=== PATIENT | female | born 1990 | race Caucasian/White ===

== ENCOUNTER 2019-11-19 12:23 | Emergency (ER) | payer OTHER ==
[~2019-11-19] VITALS: Ht 165.1 cm; Wt 59.0 kg
[2019-11-19] MEDS ORDERED: TENORMIN25 MG (12:31)
[2019-11-19] MEDS ORDERED: EFEXOR (12:31)
[2019-11-19] MEDS ORDERED: DUI500 PO (12:57)
[2019-11-19] MEDS ORDERED: MUPIROCIN1 G1 TOP (12:57)
== END 2019-11-19 13:30 | disposition home or self-care (01) ==
LOC: ER 12:23
DX: S60.470A Other superficial bite of right index finger, initial encounter (principal); W54.0XXA Bitten by dog, initial encounter; Y93.89 Activity, other specified; Y92.89 Other specified places as the place of occurrence of the external cause; Y99.8 Other external cause status

== ENCOUNTER 2020-08-14 16:29 | Emergency (ER) | payer OTHER ==
[~2020-08-14] VITALS: Ht 165.1 cm; Wt 61.2 kg
[~2020-08-14 16:29] MED LIST: DUI500 PO; EFEXOR; MUPIROCIN1 G1 TOP; TENORMIN25 MG
== END 2020-08-14 17:19 | disposition home or self-care (01) ==
LOC: ER 16:29
DX: S61.141A Puncture wound with foreign body of right thumb with damage to nail, initial encounter (principal); W22.8XXA Striking against or struck by other objects, initial encounter; Y93.89 Activity, other specified; Y92.89 Other specified places as the place of occurrence of the external cause; Y99.8 Other external cause status

== ENCOUNTER → 2020-08-19 | Emergency (ER) | payer BC ==
[~2020-08-19] VITALS: Ht 167.6 cm; Wt 56.7 kg
== END | disposition home or self-care (01) ==
LOC: ER 09:17
DX: N39.0 Urinary tract infection, site not specified (principal); R31.0 Gross hematuria

== ENCOUNTER 2020-09-17 21:56 | Emergency (ER) | payer BC ==
[~2020-09-17] VITALS: Ht 165.1 cm; Wt 56.7 kg
[2020-09-18] MEDS ORDERED: LEVSIN/SL0.125 MG SL (01:50)
[2020-09-18] MEDS ORDERED: ZOFRAN8 MG PO (01:50)
[2020-09-18] MEDS ORDERED: PROTONIX40 MG PO (01:50)
== END 2020-09-18 01:58 | disposition home or self-care (01) ==
LOC: ER 21:56
DX: K29.60 Other gastritis without bleeding (principal); Z03.818 Encounter for observation for suspected exposure to other biological agents ruled out